=== PATIENT | male | born 1990 | race Caucasian/White ===

== ENCOUNTER 2021-12-25 10:19 | Outpatient (REF) | payer MEDICAID, SELFPAY ==
[2021-12-25 11:22] LABS: COVID-19 Test Positive (Negative); IDNOW Serial# 16C4AD1C
== END 2021-12-25 10:20 | disposition home or self-care (01) ==
LOC: HO.LAB 10:19
PROVIDERS: Visit Provider Internal Medicine
DX: Z20.822 Contact with and (suspected) exposure to COVID-19 (principal)
CPT/HCPCS: 87635; C9803